=== PATIENT | male | born 1935 | race Caucasian/White ===

== ENCOUNTER → 2016-09-27 | Day surgery (SDC) | payer MEDICARE, BC ==
[~2016-09-27] MED LIST: ACETAMINOPHEN325 MG PO; ALENDRONATE SOD70 MG PO; ASPIRIN EC81 MG PO; CYMBALTA30 MG PO; DULCOLAX10 MG R; DUONEB INH; FLOMAX0.4 MG PO; FOLIC ACID 40400 MCG PO; LIORESAL10 MG PO; LOPRESSOR25 MG PO; MILK OF MA400 MG/5 M PO; NEURONTIN100 MG PO; NORCO 5-325 TA1 EACH PO; PEPCID20 MG PO; RISPERDAL1 MG PO; ROPINIROLE HCL1 MG PO; SENNA8.6 MG PO; SPIRONOLACTONE25 MG PO; VANCO 1 GR1 GM/250 M IV; VANCOMYCIN500 MG IV; VITAMIN B-121000 MCG PO; VITAMIN D1000 UNIT PO
== END | disposition disaster alternative care site (69) ==
LOC: GPOC 09-26 09:00 → GSDC 12:36 → GPOC 14:00
PROC: 009U3ZX Drainage of Spinal Canal, Percutaneous Approach, Diagnostic (ICD-10-PCS; principal; 2016-09-27)
DX: G91.2 (Idiopathic) normal pressure hydrocephalus (principal); J44.9 Chronic obstructive pulmonary disease, unspecified; N17.9 Acute kidney failure, unspecified; F03.90 Unspecified dementia, unspecified severity, without behavioral disturbance, psychotic disturbance, mood disturbance, and anxiety; R33.9 Retention of urine, unspecified